=== PATIENT | male | born 1995 | race Caucasian/White ===

== ENCOUNTER 2021-11-25 16:06 | Emergency (ER) | payer OTHER ==
[~2021-11-25] VITALS: Ht 175.3 cm; Wt 79.4 kg
[2021-11-25 16:10] VITALS: BP_SYST 145
--- NOTE | 2021-11-25 16:15 | NUR ---
Patient to ER [facility] to [facility] for evaluation. Side rails up. Report given to Curt CAVAZOS.
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
[2021-11-25] MEDS ORDERED: IBUPROFEN 600 MG TABLET PO ONE (16:45)
--- NOTE | 2021-11-25 18:16 | NUR ---
Patient ready for discharge.Patient given written and verbal discharge instructions and verbalizes understanding. ER MD discussed with patient the results and treatment provided. Patient in stable condition. ID arm band removed. Rx of naproxen given. Patient educated on pain management and to follow up with PMD. Pain Scale . Opportunity for questions provided and answered. Medication side effect fact sheet provided.
[2021-11-25] MEDS ORDERED: NAPR-690 PO (18:17)
[2021-11-25 19:32] VITALS: BP_SYST 134
[2021-11-26] MEDS ORDERED: MORPHINE 2 MG/ML INJ. SYRINGE ONE (01:38)
== END 2021-11-25 18:15 | disposition home or self-care (01) ==
LOC: SED 16:06
DX: S01.01XA Laceration without foreign body of scalp, initial encounter (principal); M79.642 Pain in left hand; Z79.899 Other long term (current) drug therapy; W21.11XA Struck by baseball bat, initial encounter; Y93.64 Activity, baseball; Y92.89 Other specified places as the place of occurrence of the external cause; Y99.8 Other external cause status
CPT/HCPCS: 70450-TC; 76376; 99284; J2270